=== PATIENT | male | born 1935 | race Caucasian/White ===

== ENCOUNTER → 2016-12-06 | Outpatient (CLI) | payer OTHER ==
--- NOTE | 2016-12-07 13:20 | RAD ---
PET/CT imaging whole body History: Left lower lobe lung mass with lymphadenopathy Comparison: None. Technique: PET examination was performed from the skull base through the legs after intravenous administration of 14.0 mCi Fluorine [address] scan was performed for the purposes of localization and attenuation, not for primary diagnosis. Blood glucose level at time of injection was 102 mg/dl. The SUV measurements described below are maximum SUV measurements. PQRS Compliance Statement: One or more of the following individualized dose reduction techniques were utilized for this examination: 1. Automated exposure control 2. Adjustment of the mA and/or kV according to patient size 3. Use of iterative reconstruction technique Findings: HEAD AND NECK: There is physiologic activity involving the parotid and submandibular salivary glands and the sublingual tonsils of the base of the tongue. There is physiologic activity involving the palatine tonsils bilaterally more prominent on the right side. This could be due to pharyngitis. CHEST: There is mediastinal lymphadenopathy involving the right paratracheal and azygos and aortic pulmonary window and subcarinal regions. The largest lymph node is seen in the aortopulmonary window region seen on series 603 and image 75 measures 12 mm. Maximum SUV here is 5.1. There is a lymph node within the subcarinal region measuring 1.4 cm in size seen on image 82 which demonstrates maximum SUV of 6.1. Bilateral hilar lymphadenopathy is seen. Maximum SUV of the right hilar lymphadenopathy is 5.9. Maximum SUV of the left hilar lymphadenopathy is 5.8. The measurement of hilar lymph nodes is difficult without intravenous contrast. There is activity within the mid and distal esophagus which may be physiologic in nature but certainly could be seen with reflux esophagitis given the small hiatal hernia. There is a left lower lobe inferior posterior lung infiltrate which is not FDG avid. Smaller ill-defined infiltrate seen within the posterior inferior right lower lobe is not FDG avid and may represent atelectasis. There is a noncalcified lung nodule within the right lateral costophrenic angle measuring 10 mm and is not FDG avid. There is some atelectasis or scarring present within the lateral segment of the right middle lobe. There is a noncalcified lung nodule within the anterior segment of the right upper lobe seen on series 3 and image 176 which is not FDG avid. At the same level more posteriorly within the right upper lobe, another noncalcified lung nodule is seen measuring 12 mm in size and is not FDG avid. On image 218, a small subcentimeter noncalcified lung nodule is seen within the lateral segment of the right middle lobe which is too small to evaluate on PET scan. There are calcified granulomas within the left lower lobe and within the left upper lobe and within the right lower lobe. Bilateral emphysema is seen. ABDOMEN AND PELVIS: The spleen is not enlarged. Bilateral renal cysts are seen. Physiologic activity is seen within the stomach and bowel and colon. However, more focally prominent area of FDG activity is seen involving the ascending colon measuring 8.1 maximum SUV. There is circumferential soft tissue mass of this portion of the colon consistent with a colon malignancy. This measures 6.7 cm in greatest AP or transverse dimension. There are abnormal lymph nodes within the right lower quadrant adjacent to this mass. The largest lymph node measures 19 mm with a max SUV of 6.2. There is a right common iliac lymph node seen on series 603 image 141 with a max SUV of 7.7. There is a left periaortic lymph node seen on image 127 series 603 with a maximum SUV of 4.2. There is focal aneurysmal dilatation of the mid abdominal aorta which measures 3.5 cm in greatest AP or transverse dimension. There is some mild soft tissue thickening around the abdominal aorta with mild FDG uptake of maximum 5.7. The prostate gland is enlarged and indents the floor of the urinary bladder. Heterogeneous FDG uptake is seen. The prostate gland measures 7.9 cm in greatest transverse dimension. LEGS: Symmetric physiologic activity is seen. MUSCULOSKELETAL: Scattered foci of increased FDG uptake is seen involving the cervical and thoracic and lumbar spine and upper aspect of the sacrum on both sides and the iliac bone bilaterally. This could represent early osseous metastatic disease. No osteolytic process is seen. IMPRESSION: Soft tissue mass of the ascending colon consistent with colonic malignancy. There are adjacent metastatic mesenteric lymph nodes. Left periaortic and right common iliac lymphadenopathy is seen as well. Lymphadenopathy involving the mediastinum and both bea. Infiltrates and lung nodules bilaterally are not FDG avid. This finding may followed with a chest CT in 3 months. 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 Soft tissue thickening and increased FDG uptake is seen around the aorta. This could represent inflammation or retroperitoneal fibrosis. Physiologic activity is seen involving the oropharynx which is more asymmetric within the right palatine tonsil. This could be seen with pharyngitis. Activity is seen within the mid to distal esophagus in association with a small hiatal hernia. This may be seen with reflux esophagitis.
== END | disposition home or self-care (01) ==
LOC: PETSC 08:43
PROVIDERS: ATTEND Internal Medicine
DX: R91.8 Other nonspecific abnormal finding of lung field (principal)
CPT/HCPCS: 78815; A9552